=== PATIENT | female | born 2000 | race Two or more races ===

== ENCOUNTER → 2024-10-02 | Outpatient (CLI) | payer BC, SELFPAY ==
--- NOTE | 2024-10-02 11:30 | XR_ITS ---
Examination: Thyroid sonography complete TECHNIQUE: Grayscale sonographic images thyroid bed Date and time: October 02, 2024 1139 hours INDICATIONS: Diagnosis thyroid cancer with thyroidectomy March 2023 FINDINGS: No soft tissue in the thyroid bed IMPRESSION: No soft tissue in the thyroid bed
== END | disposition home or self-care (01) ==
LOC: CDIM 11:20
PROVIDERS: PCP Family Medicine; Referring Provider Nurse Practitioner; Visit Provider Nurse Practitioner
DX: Z90.89 Acquired absence of other organs (principal); Z98.890 Other specified postprocedural states
CPT/HCPCS: 76536

== ENCOUNTER → 2025-01-31 | Outpatient (CLI) | payer BC, SELFPAY ==
--- NOTE | 2025-01-31 09:23 | XR_ITS ---
Examination: Pelvic ultrasound, transabdominal, complete Technique: Transabdominal ultrasound of the pelvis performed using grayscale imaging Date and time of exam: 01/31/2025, 9:56 a.m. INDICATION: Abnormal uterine bleeding for 1 month. Prior ultrasound was reported to show a dilated fallopian tube. COMPARISON: Pelvic ultrasound 01/05/2022 FINDINGS: Provide LMP of 12/24/2024. The anteverted uterus measures 8.2 x 3.6 x 5.2 cm. The uterus demonstrates normal echotexture. No evidence for mass or IUP. The endometrium measures 1.1 mm in thickness. No polyp or other discrete mass detected. The right ovary measures 3.0 x 1.9 x 2.6 cm. No concerning lesion. The left ovary measures 4.1 x 3.4 x 3.6 cm. Anechoic cyst measures 2.8 x 2.5 x 2.8 cm. Both ovaries show intact blood flow on color Doppler; no evidence for ovarian torsion. No adnexal mass detected. No evidence for abnormally distended or thickened fallopian tube on either side. No apparent free fluid IMPRESSION: Dominant simple anechoic left ovarian cyst now seen, measuring 2.8 x 2.5 x 2.8 cm. No evidence for ovarian torsion or mass on either side. No evidence for abnormally dilated or thickened fallopian tube on either side. Normal appearing uterus.
--- NOTE | 2025-01-31 09:23 | XR_ITS ---
Examination: Pelvic ultrasound, transvaginal, complete Technique: Transvaginal ultrasound of the pelvis performed using grayscale imaging Date and time of exam: 01/31/2025, 10:05 a.m. INDICATION: Abnormal uterine bleeding for 1 month. Prior ultrasound was reported to show a dilated fallopian tube. COMPARISON: Same-day transabdominal pelvic ultrasound. Pelvic ultrasound 01/05/2022 FINDINGS: Provide LMP of 12/24/2024. The anteverted uterus measures 9.3 x 3.2 x 4.8 cm on the endovaginal images. The uterus demonstrates normal echotexture. No evidence for mass or IUP. The endometrium measures 1.3 mm in thickness on the endovaginal images. No polyp or other discrete mass detected. The right ovary measures 3.8 x 2.4 x 2.1 cm on the endovaginal images. No concerning lesion. The left ovary measures 0.7 x 3.7 x 3.6 cm on the endovaginal images. Anechoic simple left ovarian cyst measures 3.0 x 2.6 x 2.9 cm on the endovaginal images. Both ovaries show intact blood flow on color Doppler; no evidence for ovarian torsion. No adnexal mass detected. No evidence for abnormally distended or thickened fallopian tube on either side. Possible minimal free fluid in the left adnexal region. IMPRESSION: Dominant simple anechoic left ovarian cyst measures 3.0 x 2.6 x 2.9 cm on endovaginal imaging No evidence for ovarian torsion or mass on either side. No evidence for abnormally dilated or thickened fallopian tube on either side. Normal appearing uterus.
== END | disposition home or self-care (01) ==
PROVIDERS: PCP Student in an Organized Health Care Education/Training Program; Referring Provider Student in an Organized Health Care Education/Training Program; Visit Provider Student in an Organized Health Care Education/Training Program
DX: N83.202 Unspecified ovarian cyst, left side (principal)
CPT/HCPCS: 76830; 76856